=== PATIENT | female | born 1945 | race Caucasian/White ===

== ENCOUNTER 2017-07-26 20:32 | Inpatient (IN) | payer MEDICARE ==
[~2017-07-26] VITALS: Ht 162.6 cm; Wt 88.9 kg
[2017-07-26 21:00] VITALS: BP 152/98
--- NOTE | 2017-07-26 21:00 | NUR ---
[employer] NOTES ADMITTED THIS 72Y.O FEMALE ON 5150 HOLD FOR DANGER TO SELF. PER HOLD PATIENT OVERDOSED ON 6-8 PILLS OF NORCO IN A SUICIDE ATTEMPT. UPON FACE TO FACE PATIENT WAS ALERT AND ORIENTED X 3-4, STATES THAT SHE ONLY TOOK THE MEDICATIONS BECAUSE SHE WAS UPSET. DENIES SUICIDAL IDEATION AT THIS TIME. PATIENT ARRIVED AT 9PM VIA STRET[facility]ER FROM [facility]. VITAL SIGNS CHECKED AND RECORDED. AFEBRILE. ASSESSMENT OF BODY SYSTEMS COMPLETED. SKIN AND BODY CHECK DONE. SKIN IS CLEAR. NOTED TO HAVE +1 PITTING EDEMA ON BILATERAL LOWER EXTREMITIES. PATIENT COMPLAINS OF RESTLESS LEGS. PATIENTS BELONGINGS CHECKED FOR CONTRABAND ITEMS. CONTRABAND ITEMS PLACED IN CONTRABAND LOCKER. VALUABLES SENT TO SAFE. CONSENTS SIGNED BY PATIENT. KEPT COMFORTABLE IN BED.
[2017-07-26] MEDS ORDERED: MELO7.5T12 PO (21:18)
[2017-07-26] MEDS ORDERED: DULO30CA2 PO (21:18)
[2017-07-26] MEDS ORDERED: ROPI1TAB2 PO (21:18)
[2017-07-26] MEDS ORDERED: HYDR-552 PO (21:18)
[2017-07-26] MEDS ORDERED: MAG HYDROX/AL HYDROX/SIMETH 30 ML UDC PO PRN (21:30)
[2017-07-26] MEDS ORDERED: ACETAMINOPHEN 325 MG TABLET PO PRN (21:30)
[2017-07-26] MEDS ORDERED: MAGNESIUM HYDROXIDE 30 ML UDC PO PRN (21:30)
--- NOTE | 2017-07-26 22:00 | NUR ---
GPS RN NOTES CALL MADE TO DR. RADHA HOWARD MD MADE AWARE OF NEW PATIENT AND THAT MED. RECON NEEDS TO BE DONE.
[2017-07-27] MEDS ORDERED: TEMAZEPAM 7.5 MG CAPSULE ONE (00:09)
[2017-07-27] MEDS: TEMAZEPAM 7.5 MG CAPSULE PO PRN ×2 (00:44→20:52)
[2017-07-27] MEDS ORDERED: HYDROCODONE/APAP 5/325MG 1 EACH TABLET ONE (04:50)
[2017-07-27] MEDS ORDERED: ropiniROLE 0.5 MG TABLET ONE (06:12)
[2017-07-27 06:36] LABS: BASOPHILS % (AUTO) 0.3 % (0.0-2.0); EOSINOPHILS # (AUTO) 0.2 /CMM (0.0-0.7); EOSINOPHILS % (AUTO) 1.6 % (0.0-6.0); HEMATOCRIT 42 % (33-45); HEMOGLOBIN 13.9 g/dL (11.5-14.8); LYMPHOCYTES # (AUTO) 2.6 /CMM (0.8-4.8); LYMPHOCYTES % (AUTO) 24.9 % (20.0-44.0); MEAN CORPUSCULAR HEMOGLOBIN 27 PG (26.0-33.0); MEAN CORPUSCULAR HGB CONC 33 g/dl (31.0-36.0); MEAN CORPUSCULAR VOLUME 83 fL (82-100); MONOCYTES # (AUTO) 0.6 /CMM (0.1-1.30); MONOCYTES % (AUTO) 5.3 % (2.0-12.0); NEUTROPHILS # (AUTO) 7.2 /CMM (1.8-8.9); NEUTROPHILS % (AUTO) 67.9 % (43.0-81.0); PLATELET COUNT (AUTO) 259 /CMM (150-450); RDW COEFFICIENT OF VARIATION 18.8 (11.5-15.0); RED BLOOD CELL COUNT(AUTO) 5.11 MIL/uL (4.0-5.2); WHITE BLOOD COUNT (AUTO) 10.6 K/uL (4.3-11.0)
[2017-07-27 07:35] LABS: CHOLESTEROL 253 mg/dL (<200); HDL CHOLESTEROL 72 mg/dL (40-60); LDL 162 mg/dL (0-99); TRIGLYCERIDES 145 mg/dL (30-150)
[2017-07-27 07:40] LABS: ALANINE AMINOTRANSFERASE 36 U/L (12-78); ALBUMIN 3.4 g/dL (3.4-5.0); ALKALINE PHOSPHATASE 117 U/L (46-116); ASPARTATE AMINOTRANSFERASE 21 U/L (15-37); BILIRUBIN,TOTAL 0.3 mg/dL (0.2-1.0); CALCIUM, SERUM 9.5 mg/dL (8.5-10.1); CARBON DIOXIDE 26 mmol/L (21-32); CHLORIDE 105 mmol/L (98-107); CREATININE 0.7 mg/dL (0.6-1.3); GLUCOSE 134 mg/dL (74-106); POTASSIUM 4.4 mmol/L (3.5-5.1); SODIUM SERUM 141 mmol/L (136-145); TOTAL PROTEIN, SERUM 7.2 g/dL (6.4-8.2); UREA NITROGEN, BLOOD 12 mg/dL (7-18)
[2017-07-27 08:00] VITALS: BP 138/84
[2017-07-27] MEDS: DULOXETINE HCL 30 MG CAPSULE.DR PO SCH ×2 (12:32→17:33)
[2017-07-27] MEDS: HYDROCODONE/APAP 5/325MG 1 EACH TABLET PO PRN (14:35)
[2017-07-27 15:54] VITALS: BP 141/81
[2017-07-27] MEDS: LORAZEPAM 0.5 MG TABLET PO PRN (17:33)
--- NOTE | 2017-07-27 19:30 | NUR ---
GPS RN NOTES RECEIVED IN ROOM,SITTING ON EDGE OF BED A/O X4,ABLE TO VERBALIZED NEEDS.NO ACTIVE SUICIDAL IDEATION NOTED.WILL CONTINUE WITH FREQUENT ROUNDING FOR PATIENT SAFETY.NEEDS ANTICIPATED.
[2017-07-27 20:00] VITALS: BP_SYST 147; BP_DIAS 73; BP_DIAS 93
[2017-07-28] MEDS: LORAZEPAM 0.5 MG TABLET PO PRN (00:01)
--- NOTE | 2017-07-28 00:03 | NUR ---
GPS/RN-PATIENT VERBALIZED FEELING ANXIOUS,ATIVAN 0.5 MG.PO GIVEN ORDERED.
[2017-07-28] MEDS: DULOXETINE HCL 30 MG CAPSULE.DR PO SCH ×2 (08:04→16:34)
[2017-07-28 08:23] VITALS: BP 112/68
[2017-07-28] MEDS ORDERED: ropiniROLE 0.5 MG TABLET PO SCH (09:00)
[2017-07-28 16:00] VITALS: BP 137/83
[2017-07-28] MEDS: HYDROCODONE/APAP 5/325MG 1 EACH TABLET PO PRN (16:31)
--- NOTE | 2017-07-28 16:31 | NUR ---
[id number]: GAVE NORCO 5/325 MG PO DUE TO BACK PAIN 06/20 AND WILL CONTINUE TO MONITOR FOR EFFECTIVENESS OF MEDICATION.
--- NOTE | 2017-07-28 16:34 | NUR ---
[id number]: PT REFUSED TO TAKE CYMBALTA 30 MG BECAUSE PT STATED, "I THINK IT IS SO STRONG FOR ME." WILL CONTINUE TO MONITOR.
--- NOTE | 2017-07-28 19:32 | NUR ---
GPS/RN NOTE: TALKING TO HER ROOMMATE, INSIDE THE ROOM WHILE SITTING IN BED. PLEASANT AND RESPONDS WELL WHEN ENGAGED. NO ACUTE DISTRESS NOTED.
[2017-07-28 19:47] VITALS: BP 147/89
[2017-07-28] MEDS: TEMAZEPAM 7.5 MG CAPSULE PO PRN (21:53)
--- NOTE | 2017-07-28 21:53 | NUR ---
GPS/RN NOTE: PATIENT CAME UP TO THE NURSE'S STATION ASKING FOR HER SLEEPING PILL, RETORIL 7.5 MG CAP 1 PO GIVEN.
[2017-07-29] MEDS: HYDROCODONE/APAP 5/325MG 1 EACH TABLET PO PRN (01:26)
--- NOTE | 2017-07-29 01:27 | NUR ---
GPS/RN NOTE: AWAKE, C/O LOWER BACK PAIN, 7/10 ON PAIN SCALE, NORCO 5/325 MG TAB 1 PO GIVEN.
[2017-07-29 08:00] VITALS: BP 120/69
[2017-07-29] MEDS: DULOXETINE HCL 30 MG CAPSULE.DR PO SCH (08:07)
[2017-07-29] MEDS ORDERED: KETOROLAC TROMETHAMINE 15 MG/ML VIAL ONE (09:20)
--- NOTE | 2017-07-29 11:12 | NUR ---
ALFONSO called pt's friend, Mello Solitario at [phone]. Mello is currently staying at pt's place of residence while pt is in the hospital. Mello confirmed that he will be able to pick pt up once she is ready for discharge. ALFONSO will follow up.
--- NOTE | 2017-07-29 11:12 | NUR ---
Initial discharge plan: Patient resides in an apartment at [address] [place] [address]; [phone] and wants to return there when she is ready for discharge. Patient stated that she feels safe there. SW called and spoke to pt's friend, Mello Solitario [phone], who is looking after pt's place while she is at the hospital. Mello stated that he will be able to pick pt up whenever she is ready for discharge. SW will follow up and will help form a safe and proper discharge. SW will also provide pt with referrals for substance abuse treatment centers upon discharge.
--- NOTE | 2017-07-29 16:04 | NUR ---
Discharge Note: Patient was discharged back home to [address] [place] [id number]; [phone]. Her friend, Mello Solitario [[phone]] transported the patient back home via private vehicle. Patient denied suicidal/homicidal ideation at this time. Patient will follow up with [facility]: [facility] [place] [id number]; on 07/30/2017 at 9:00am to discuss substance use.
--- NOTE | 2017-07-29 16:10 | NUR ---
[id number]: PT IS 72 YEARS OLD FEMALE DISCHARGE TO HOME AT [address] [place]. [address] IN STABLE CONDITION. COMPLIANT WITH MEDICATIONS, COOPERATIVE WITH TREATMENT PLANS. PT DENIES SI/HI AND INSTRUCTED TO FO TO THE CLOSEST ER IF DEVELOPING SI/HI. BEHAVIOR IMPROVED, PSYCHIATRIC TX PLANS MET, MEDICAL TX PLANS DEFERRED FOR CONTINUAL MONITORING. EDUCATED PT ABOUT AFTER CARE PLAN AND COPY PROVIDED. RETURNED PERSONAL BELONGINGS TO PT. MEDICATION RECONCILED WITH DR YOO AND DR. SPENCER. REPORT GIVEN TO SALOMÓN DUCKWORTH . PT SIGNED DISCHARGE PAPERWORK. SKIN ASSESSMENT DONE. PT LEFT VIA PRIVATE CAR ESCORTED BY STAFF.
[2017-07-29] MEDS ORDERED: DULOXETINE HCL 30 MG CAPSULE.DR PO SCH (17:00)
== END 2017-07-29 16:10 | disposition home or self-care (01) | DRG 885 ==
LOC: GPS 20:32
PROVIDERS: ADMIT Psychiatry & Neurology Psychosomatic Medicine; ATTEND Internal Medicine
DX: F33.2 Major depressive disorder, recurrent severe without psychotic features (principal); T40.2X2A Poisoning by other opioids, intentional self-harm, initial encounter; R45.851 Suicidal ideations; G25.81 Restless legs syndrome; Y92.009 Unspecified place in unspecified non-institutional (private) residence as the place of occurrence of the external cause
CPT/HCPCS: 36415; 80053-TC; 80061-TC; 85025-TC; 87081-TC; J1885